=== PATIENT | male | born 1950 | race Two or more races ===

== ENCOUNTER 2016-09-07 12:43 | Emergency (ER) | payer MEDICAID ==
[~2016-09-07] VITALS: Wt 69.0 kg
[~2016-09-07 12:43] MED LIST: ASPI-664 PO; HYDR-842 PO; HYDR500C3 PO; LISI-313 PO; METO-448 PO; OMEP20CA9 PO; PERM120L5 TP
[2016-09-07] MEDS ORDERED: HYDROCODONE/APAP (10/325) TAB PO ONE (15:00)
[2016-09-07 15:05] LABS: BASOPHILS % 0.4 % (0.0-2.0); EOSINOPHILS # 0.1 10^3/ul (0.0-0.5); EOSINOPHILS % 1.8 % (0.0-7.0); HEMATOCRIT 42.4 % (42.0-52.0); HEMOGLOBIN 14.2 g/dl (14.0-18.0); LYMPHOCYTES # 1.4 10^3/ul (0.8-2.9); LYMPHOCYTES % 18.9 % (15.0-51.0); MEAN CORPUSCULAR HEMOGLOBIN 37.7 pg (29.0-33.0); MEAN CORPUSCULAR HGB CONC 33.5 g/dl (32.0-37.0); MEAN CORPUSCULAR VOLUME 112.5 fl (82.0-101.0); MEAN PLATELET VOLUME 6.9 fl (7.4-10.4); MONOCYTE # 0.6 10^3/ul (0.3-0.9); MONOCYTES % 7.9 % (0.0-11.0); NEUTROPHIL # 5.1 10^3/ul (1.6-7.5); PLATELET COUNT 444 10^3/UL (140-440); RED BLOOD COUNT 3.77 10^6/ul (4.70-6.10); RED CELL DISTRIBUTION WIDTH 14.5 % (11.5-14.5); UNCORRECTED WBC 7.2 10^3/ul (4.8-10.8); WHITE BLOOD COUNT 7.2 10^3/ul (4.8-10.8)
--- NOTE | 2016-09-07 15:10 | RADRPT ---
PROCEDURE: XR Chest. CLINICAL INDICATION: Chest pain TECHNIQUE: Single frontal view of the chest was obtained COMPARISON: None FINDINGS: The heart is enlarged. The thoracic aorta is calcified. There are mild bibasilar atelectatic changes. There is no pleural effusion or pneumothorax. There is a healed right posterior seventh rib fracture. RPTAT: AA IMPRESSION: Mild cardiomegaly. Calcified aorta consistent with atherosclerotic disease. Mild bibasilar atelectatic changes. .Juan Zarco MD, Date Time Electronically viewed and signed by .Juan Zarco MD, on 09/07/2016 15:10 .S/
[2016-09-07 15:18] LABS: POTASSIUM 4.7 mmol/L (3.5-5.1)
[2016-09-07 15:20] LABS: BILIRUBIN,INDIRECT 0.1 mg/dl (0-1.1); BILIRUBIN,TOTAL 0.1 mg/dl (0.2-1.3); CREATININE 0.88 mg/dl (0.61-1.24)
[2016-09-07 15:21] LABS: ALBUMIN/GLOBULIN RATIO 1.11; CALCIUM 8.9 mg/dl (8.4-10.2); TOTAL PROTEIN 7.6 g/dl (6.1-8.1)
[2016-09-07 15:35] LABS: CONDITION 1; LH ANALYZER COMMENTS 1
[2016-09-07] MEDS ORDERED: CEPH-443 PO (16:09)
[2016-09-07] MEDS ORDERED: BACTDS PO (16:09)
[2016-09-07] MEDS ORDERED: IBUP-1542 PO (16:09)
--- NOTE | 2016-09-07 16:11 | ERD ---
ER Documentation Chief Complaint Date/Time DATE: 09/07/16 TIME: 16:11 Chief Complaint left hand pain from a insect bite. no drainage. mild swelling HPI Patient is a 66-year-old male who presents with a "spider bite" to the left hand. He said that he has had this for a few days. It is a bite to the back of his left hand. He did not see the spider bite him. He has had pain and redness to the area. He has no limitations to range of motion. He has had no treatment as of yet. Upon review of old medical records this is the patient's third visit to the ER since 2014. ROS All systems reviewed and are negative except as per history of present illness. Medications Home Meds Active Scripts Ibuprofen* (Motrin*) 600 Mg Tab, 600 MG PO Q6H Y for PAIN AND OR ELEVATED TEMP, #30 TAB Prov:JAY LEY MD 09/07/16 Cephalexin* (Keflex*) 500 Mg Capsule, 500 MG PO QID for 7 Days, CAP Prov:JAY LEY MD 09/07/16 Sulfamethoxazole-Trimethoprim* (Bactrim* DS) 800-160 Mg Tab, 1 TAB PO BID for 7 Days, TAB Prov:JAY LEY MD 09/07/16 Hydroxyzine Hcl* (Atarax*) 25 Mg Tab, 25 MG PO Q6H Y for ITCHING for 3 Days, TAB Prov:THOMAS JIMENES 12/29/15 Permethrin (Permethrin) 118 Ml Liquid, 118 ML TP QHS for 2 Days, EA Prov:THOMAS JIMENES 12/29/15 Reported Medications Metoprolol Tartrate* (Lopressor*) 25 Mg Tab, 25 MG PO BID, TAB 10/28/14 Omeprazole* (Prilosec*) 20 Mg Capsule.dr, 20 MG PO BID, CAP 10/28/14 Aspirin* (Aspirin* EC) 81 Mg Tablet.dr, 81 MG PO DAILY, TAB 10/28/14 Lisinopril* (Lisinopril*) 5 Mg Tablet, 5 MG PO DAILY, TAB 10/28/14 Hydroxyurea* (Hydroxyurea*) 500 Mg Capsule, 1000 MG PO BID, CAP 10/28/14 Allergies Allergies: Coded Allergies: No Known Allergy (Unverified , 09/07/16) PMhx/Soc Hx Cardiac Disorders: Yes (CHF) Hx Miscellaneous Medical Probl: Yes (CHF, BLOOD DISORDER) Hx Alcohol Use: No Hx Substance Use: No Hx Tobacco Use: No FmHx Family History: No diabetes Physical Exam Vitals Vital Signs Date Time Temp Pulse Resp B/P Pulse Ox O2 Delivery O2 Flow Rate FiO2 09/07/16 12:45 97.2 43 21 131/61 100 Physical Exam Const: No acute distress Head: Atraumatic Eyes: Normal Conjunctiva ENT: Normal External Ears, Nose and Mouth. Neck: Full range of motion..~ No meningismus. Resp: Clear to auscultation bilaterally Cardio: Regular rate and rhythm, no murmurs Abd: Soft, non tender, non distended. Normal bowel sounds Skin: Mild redness to the back of the left hand without sign of obvious bite irma, no abscess formation, no signs of flexor tenosynovitis, no streaking up the arm Back: No midline or flank tenderness Ext: No cyanosis, or edema Neur: Awake, mental status is at baseline per significant other Result Diagram: 09/07/16 1445 09/07/16 1445 Results 24 hrs Laboratory Tests Test 09/07/16 14:45 Alanine Aminotransferase (ALT/SGPT) 51IU/L Albumin 4.0g/dl Albumin/Globulin Ratio 1.11 Alkaline Phosphatase 87IU/L Anion Gap 17 Aspartate Amino Transf (AST/SGOT) 37IU/L B-Type Natriuretic Peptide 67PG/ML Basophils # 0.010^3/ul Basophils % 0.4% Blood Morphology Comment Blood Urea Nitrogen 19mg/dl Calcium Level 8.9mg/dl Carbon Dioxide Level 30mmol/L Chloride Level 101mmol/L Creatinine 0.88mg/dl Direct Bilirubin 0.00mg/dl Eosinophils # 0.110^3/ul Eosinophils % 1.8% Globulin 3.60g/dl Glucose Level 105mg/dl Hematocrit 42.4% Hemoglobin 14.2g/dl Indirect Bilirubin 0.1mg/dl Lymphocytes # 1.410^3/ul Lymphocytes % 18.9% Mean Corpuscular Hemoglobin 37.7pg Mean Corpuscular Hemoglobin Concent 33.5g/dl Mean Corpuscular Volume 112.5fl Mean Platelet Volume 6.9fl Monocytes # 0.610^3/ul Monocytes % 7.9% Neutrophils # 5.110^3/ul Neutrophils % 71.0% Nucleated Red Blood Cells # 0.010^3/ul Nucleated Red Blood Cells % 0.0/100WBC Platelet Count 13360^3/UL Potassium Level 4.7mmol/L Red Blood Count 3.7710^6/ul Red Cell Distribution Width 14.5% Sodium Level 143mmol/L Total Bilirubin 0.1mg/dl Total Protein 7.6g/dl White Blood Count 7.210^3/ul Current Medications Medications (Trade) Dose Ordered Sig/Cata Route PRN Reason Start Time Stop Time Status Last Admin Dose Admin Acetaminophen/ Hydrocodone Bitart ([place] ()) 1 tab ONCE ONCE PO 09/07/16 15:00 09/07/16 15:01 09/07/16 14:57 Procedures/MDM EKG read by me: Rate/Rhythm: Bigeminy at a rate of 68 Intervals: Normal Impression: Bigeminy without ischemia Patient is a 66-year-old male presents with bite to the back of the left hand. He has a mild cellulitis. He has mental status was questionable as he had difficulty answering the year although the significant other says that this is his normal baseline. He is just requesting something for pain and they do not want to stay for further workup. I initially added talks workup with alcohol, aspirin, and Tylenol as well as urine drug screen. I also ordered CT scan of the brain but the patient and her significant other are refusing this at this time. They want to go home. I believe it is a reasonable option to treat him with Bactrim and Keflex as well as ibuprofen for pain. He does not appear to be septic at this time. However I did want to admit him and they understand the risk of leaving AGAINST MEDICAL ADVICE. The patient can return sooner for any worsening symptoms. At this point the patient should follow-up with the primary doctor within 24-48 hours. Departure Diagnosis: Primary Impression: Cellulitis Site of cellulitis: extremity Site of cellulitis of extremity: upper extremity Laterality: left Qualified Code: L03.114 - Cellulitis of left upper extremity Additional Impression: Bite wound Condition: Fair Patient Instructions: Cellulitis, Spider Bite, Non-Poisonous Referrals: Your doctor Additional Instructions: Call your primary care doctor TOMORROW for an appointment during the next 1-2 days.See the doctor sooner or return here if your condition worsens before your appointment time. JAY LEY MD Sep 07, 2016 16:11
== END 2016-09-07 16:37 | disposition home or self-care (01) ==
LOC: FTE 12:43
DX: L03.114 Cellulitis of left upper limb (principal); I50.9 Heart failure, unspecified; R07.9 Chest pain, unspecified; W57.XXXA Bitten or stung by nonvenomous insect and other nonvenomous arthropods, initial encounter; Y92.9 Unspecified place or not applicable; Z79.82 Long term (current) use of aspirin
CPT/HCPCS: 36415; 71010; 80053; 83880; 85025; 93005; Z7502; Z7610